=== PATIENT | female | born 1995 | race Caucasian/White ===

== ENCOUNTER → 2024-12-04 10:27 | Outpatient (CLI) | payer OTHER, SELFPAY ==
--- NOTE | 2024-12-04 10:31 | DI.US.S_ITS ---
PROCEDURE: US PELVIC COMPLETE INDICATIONS: LOWER ABDOMINAL PAIN ?OVARIAN CYSTS TECHNIQUE: Real-time scanning was performed of the pelvic organs, with image documentation. Additional endovaginal scanning was necessary due to incomplete visualization of the adnexal and endometrial structures by transabdominal scanning. COMPARISON: None. FINDINGS: Uterus: Uterus is anteverted and normal in size at 7.1 x 6.3 x 4.6 cm. The myometrium is homogeneous. The endometrium measures 7 mm combined thickness. No abnormal vascularity can be seen along the endometrial stripe. Ovaries: The right ovary measures 4.4 x 3.9 x 3 cm, with a calculated ovarian volume of 26.8 cc. The left ovary measures 4.1 x 2.9 x 2.7 cm, with a calculated ovarian volume of 17 cc. More than 12 follicles can be seen in each ovary. No focally suspicious ovarian cysts can be seen. No para ovarian cysts are seen. No adnexal masses are seen. Other: No pathologic free abdominal or pelvic fluid. IMPRESSION: More than 12 follicles can be seen involving each ovary, which is suggestive of polycystic ovarian syndrome. However, please correlate with clinical data. We strive to produce accurate, complete, and clear reports of imaging services. To assist us in improving patient care, this report was composed using standard report templates and voice recognition software. Therefore, it may contain abnormal punctuation, insertions and/or omissions. Occasional wrong-word or sound-alike substitutions may occur. Though we review the report and make efforts to correct it, we do recommend that the report be read carefully in proper context to recognize any text inaccuracies. Dictated by: Ad Camara M.D. on 12/04/2024 at 12:12 Approved by: Ad Camara M.D. on 12/04/2024 at 12:14
== END ==
DX: R10.30 Lower abdominal pain, unspecified (principal)
CPT/HCPCS: 76830; 76856